=== PATIENT | female | born 1940 | race Caucasian/White ===

== ENCOUNTER 2018-01-14 18:15 | Inpatient (IN) | payer OTHER, MEDICARE ==
[2018-01-14] MEDS ORDERED: SOD CHLORIDE 0.9% 500 ML IV (20:30)
[2018-01-14 20:32] LABS: ADD MAN DIFF? NO
[2018-01-14 20:34] LABS: WHITE BLOOD COUNT 13.3 10^3/ul (4.8-10.8)
[2018-01-14 20:34] LABS: ABNORMAL IP MESSAGE 1; BASOPHIL # 0.1 10^3/ul (0.0-0.1); BASOPHILS % 0.4 % (0.0-2.0); EOSINOPHILS % 0.2 % (0.0-7.0); HEMATOCRIT 35.5 % (37.0-47.0); HEMOGLOBIN 11.1 g/dl (12.0-16.0); LYMPHOCYTES # 1.6 10^3/ul (0.8-2.9); LYMPHOCYTES % 12.1 % (15.0-51.0); MEAN CORPUSCULAR HEMOGLOBIN 18.7 pg (29.0-33.0); MEAN CORPUSCULAR HGB CONC 31.3 g/dl (32.0-37.0); MEAN CORPUSCULAR VOLUME 59.9 fl (82.0-101.0); MEAN PLATELET VOLUME 10.2 fl (7.4-10.4); MONOCYTE # 0.7 10^3/ul (0.3-0.9); MONOCYTES % 5.2 % (0.0-11.0); NEUTROPHIL # 10.8 10^3/ul (1.6-7.5); NEUTROPHILS % 81.3 % (39.0-77.0); PLATELET COUNT 458 10^3/UL (140-415); RED BLOOD COUNT 5.93 10^6/ul (4.20-5.40); RED CELL DISTRIBUTION WIDTH 18.3 % (11.5-14.5)
[2018-01-14 20:40] LABS: POSITIVE DIFF @See below
[2018-01-14] MEDS: SODIUM CHLORIDE 0.9% 1L BAG IV* (20:46)
[2018-01-14] MEDS: KETOROLAC 15 MG INJ IV (20:47)
[2018-01-14] MEDS: ONDANSETRON 4 MG INJ IV (20:47)
[2018-01-14] MEDS: ACETAMINOPHEN 325 MG TAB PO (20:47)
[2018-01-14 20:53] LABS: ALANINE AMINOTRANSFERASE 26 IU/L (13-69); ALBUMIN 4.9 g/dl (3.3-4.9); ALBUMIN/GLOBULIN RATIO 1.11; ALKALINE PHOSPHATASE 88 IU/L (42-121); ANION GAP 19 (8-16); ASPARTATE AMINO TRANSFERASE 27 IU/L (15-46); BILIRUBIN,INDIRECT 0.4 mg/dl (0-1.1); BILIRUBIN,TOTAL 0.4 mg/dl (0.2-1.3); BLOOD UREA NITROGEN 16 mg/dl (7-20); CALCIUM 9.7 mg/dl (8.4-10.2); CARBON DIOXIDE 28 mmol/L (21-31); CHLORIDE 94 mmol/L (97-110); CREATININE 0.68 mg/dl (0.44-1.00); GLUCOSE 208 mg/dl (70-220); INR 0.88; LIPASE 136 U/L (23-300); POTASSIUM 4.4 mmol/L (3.5-5.1); PT RATIO 0.9; SODIUM 137 mmol/L (135-144); TOTAL PROTEIN 9.3 g/dl (6.1-8.1)
[2018-01-14 20:54] LABS: PARTIAL THROMBOPLASTIN TIME 29.1 Sec (23.0-35.0)
[2018-01-14 21:04] LABS: TROPONIN-I < 0.012 ng/ml (0.000-0.120)
[2018-01-14 21:31] LABS: ADD UMIC YES; UR ASCORBIC ACID NEGATIVE (NEGATIVE); UR BILIRUBIN (Dip) NEGATIVE (NEGATIVE); UR BLOOD (Dip) NEGATIVE (NEGATIVE); UR CLARITY CLEAR (CLEAR); UR COLOR COLORLESS (YELLOW); UR GLUCOSE (Dip) 3+ mg/dL (NEGATIVE); UR KETONES (Dip) TRACE mg/dL (NEGATIVE); UR LEUKOCYTE ESTERASE (Dip) NEGATIVE Leu/ul (NEGATIVE); UR NITRITE (Dip) NEGATIVE (NEGATIVE); UR RBC 1 /HPF (0-5); UR SPECIFIC GRAVITY (Dip) 1.007 (1.003-1.030); UR TOTAL PROTEIN (Dip) 2+ mg/dl (NEGATIVE); UR UROBILINOGEN (Dip) NEGATIVE (NEGATIVE); UR WBC 3 /HPF (0-5)
[2018-01-14] MEDS: CEFEPIME 1GM/50 ML (PMX) 50 ML IVPB (22:49)
[2018-01-14 22:54] LABS: LACTIC ACID 3.1 mmol/L (0.5-2.0)
[2018-01-14] MEDS ORDERED: ACETAMINOPHEN 325 MG TAB PO (23:00)
[2018-01-14] MEDS ORDERED: DOCUSATE SODIUM 100 MG CAP PO (23:00)
[2018-01-14] MEDS ORDERED: ONDANSETRON 4 MG INJ IV (23:00)
[2018-01-14] MEDS ORDERED: NACL 0.9% 3 ML SYG IV (23:00)
[2018-01-14] MEDS ORDERED: BISACODYL (EC) 5 MG TAB PO (23:00)
[2018-01-14] MEDS: VANCOMYCIN 1 GM (PMX) 250 ML IVPB (23:25)
[2018-01-15] MEDS: SOD CHLORIDE 0.9% 100 ML (00:17)
[2018-01-15] MEDS: IOHEXOL 300MG/ML 150 ML BTL (00:17)
[2018-01-15 00:39] LABS: LACTIC ACID 2.5 mmol/L (0.5-2.0)
[2018-01-15 01:03] LABS: C-REACTIVE PROTEIN 0.6 mg/dl (0.0-0.9)
[2018-01-15] MEDS: ACCU-CHEK XX (02:00)
[2018-01-15] MEDS: LOSARTAN 50 MG TAB PO ×3 (02:22→21:07)
[2018-01-15] MEDS: INSULIN ASPART [NOVOLOG] 3 ML PEN SC ×7 (05:26→21:40)
[2018-01-15] MEDS: ONDANSETRON 4 MG TAB PO ×2 (05:27→12:26)
[2018-01-15 06:08] LABS: ADD MAN DIFF? NO
[2018-01-15 06:15] LABS: ABNORMAL IP MESSAGE 1; BASOPHILS % 0.2 % (0.0-2.0); HEMATOCRIT 30.1 % (37.0-47.0); HEMOGLOBIN 9.5 g/dl (12.0-16.0); LYMPHOCYTES # 1.7 10^3/ul (0.8-2.9); LYMPHOCYTES % 15.8 % (15.0-51.0); MEAN CORPUSCULAR HEMOGLOBIN 18.6 pg (29.0-33.0); MEAN CORPUSCULAR HGB CONC 31.6 g/dl (32.0-37.0); MEAN PLATELET VOLUME 10.4 fl (7.4-10.4); MONOCYTE # 0.9 10^3/ul (0.3-0.9); NEUTROPHIL # 8.2 10^3/ul (1.6-7.5); NEUTROPHILS % 75.4 % (39.0-77.0); PLATELET COUNT 404 10^3/UL (140-415); RED CELL DISTRIBUTION WIDTH 17.2 % (11.5-14.5)
[2018-01-15 06:15] LABS: WHITE BLOOD COUNT 10.8 10^3/ul (4.8-10.8)
[2018-01-15 06:22] LABS: POSITIVE DIFF @See below
[2018-01-15 06:43] LABS: IRON 106 ug/dl (35-150)
[2018-01-15 06:45] LABS: ALANINE AMINOTRANSFERASE 36 IU/L (13-69); ALBUMIN 3.4 g/dl (3.3-4.9); ALBUMIN/GLOBULIN RATIO 0.97; ALKALINE PHOSPHATASE 61 IU/L (42-121); ANION GAP 16 (8-16); ASPARTATE AMINO TRANSFERASE 19 IU/L (15-46); BILIRUBIN,INDIRECT 0.6 mg/dl (0-1.1); BILIRUBIN,TOTAL 0.6 mg/dl (0.2-1.3); BLOOD UREA NITROGEN 14 mg/dl (7-20); CALCIUM 8.5 mg/dl (8.4-10.2); CARBON DIOXIDE 29 mmol/L (21-31); CHLORIDE 96 mmol/L (97-110); CHOL/HDL RATIO 2.5 RATIO; CHOLESTEROL 142 mg/dl (100-200); CREATININE 0.69 mg/dl (0.44-1.00); GLUCOSE 211 mg/dl (70-220); HDL CHOLESTEROL 56 mg/dl (33-92); LDL CHOLESTEROL,CALCULATED 73 mg/dl; MAGNESIUM 1.2 mg/dl (1.7-2.5); POTASSIUM 3.9 mmol/L (3.5-5.1); SODIUM 137 mmol/L (135-144); TOTAL PROTEIN 6.9 g/dl (6.1-8.1); TRIGLYCERIDES 67 mg/dl (0-149)
[2018-01-15 06:52] LABS: % IRON SATURATION 37 % SAT (22-52); TOTAL IRON BINDING CAPACITY 290 ug/dl (241-421)
[2018-01-15] MEDS ORDERED: VANCOMYCIN IV PER PHARMACY XX (07:30)
[2018-01-15] MEDS: PIPER-TAZO 3.375 GM IV (PMX) 100 ML IVPB ×3 (07:56→18:45)
[2018-01-15] MEDS ORDERED: GLUCOSE GEL 15 GRAM TUBE BUCCAL (08:00)
[2018-01-15] MEDS ORDERED: DEXTROSE 50% 50 ML SYRINGE IV ×2 (08:00)
[2018-01-15] MEDS ORDERED: GLUCOSE GEL 15 GRAM TUBE PO ×2 (08:00)
[2018-01-15] MEDS ORDERED: GLUCAGON 1 MG INJ IM (08:00)
[2018-01-15] MEDS: LEVETIRACETAM 500 MG TAB PO (09:01)
[2018-01-15 12:01] LABS: HEMOGLOBIN A1C 7.7 % (0-5.9)
[2018-01-15 12:12] LABS: CREATINE KINASE 33 IU/L (23-200)
[2018-01-15 12:22] LABS: CK-MB 0.66 ng/ml (0.0-2.4)
[2018-01-15] MEDS: MAGNESIUM SULFATE 4 GM/100 ML 100 ML IVPB (13:46)
[2018-01-15] MEDS: INSULIN GLARGINE [LANTus] (100 UNITS/ML) SYG SC (14:04)
[2018-01-15 18:15] LABS: CREATINE KINASE 32 IU/L (23-200)
[2018-01-15 18:27] LABS: CK-MB 0.65 ng/ml (0.0-2.4); TROPONIN-I < 0.012 ng/ml (0.000-0.120)
[2018-01-15] MEDS: VANCOMYCIN 1 GM 250 ML IVPB (20:47)
[2018-01-15] MEDS: hydrALAzine 20 MG INJ IV (21:08)
[2018-01-15] MEDS: PEG/ELECTROLYTES 4L BTL PO (21:40)
[2018-01-16] MEDS: PIPER-TAZO 3.375 GM IV (PMX) 100 ML IVPB ×5 (00:33→23:38)
[2018-01-16] MEDS: ACETAMINOPHEN 325 MG TAB PO (00:55)
[2018-01-16 01:22] LABS: CREATINE KINASE 31 IU/L (23-200)
[2018-01-16 01:34] LABS: CK INDEX 2.4; CK-MB 0.74 ng/ml (0.0-2.4); TROPONIN-I < 0.012 ng/ml (0.000-0.120)
[2018-01-16] MEDS: ACCU-CHEK XX (01:47)
[2018-01-16] MEDS: LORAZEPAM 2 MG INJ IV (04:38)
[2018-01-16 06:40] LABS: ADD MAN DIFF? NO
[2018-01-16 06:44] LABS: BASOPHILS % 0.5 % (0.0-2.0); EOSINOPHILS # 0.1 10^3/ul (0.0-0.5); HEMATOCRIT 27.9 % (37.0-47.0); HEMOGLOBIN 8.8 g/dl (12.0-16.0); LYMPHOCYTES # 1.9 10^3/ul (0.8-2.9); LYMPHOCYTES % 23.3 % (15.0-51.0); MEAN CORPUSCULAR HEMOGLOBIN 18.7 pg (29.0-33.0); MEAN CORPUSCULAR HGB CONC 31.5 g/dl (32.0-37.0); MEAN CORPUSCULAR VOLUME 59.4 fl (82.0-101.0); MEAN PLATELET VOLUME 9.9 fl (7.4-10.4); MONOCYTE # 1.1 10^3/ul (0.3-0.9); MONOCYTES % 13.4 % (0.0-11.0); NEUTROPHIL # 5.1 10^3/ul (1.6-7.5); NEUTROPHILS % 61.4 % (39.0-77.0); PLATELET COUNT 344 10^3/UL (140-415); RED CELL DISTRIBUTION WIDTH 17.1 % (11.5-14.5)
[2018-01-16 06:44] LABS: WHITE BLOOD COUNT 8.3 10^3/ul (4.8-10.8)
[2018-01-16 07:39] LABS: ANION GAP 13 (8-16); BLOOD UREA NITROGEN 13 mg/dl (7-20); CALCIUM 8.2 mg/dl (8.4-10.2); CARBON DIOXIDE 29 mmol/L (21-31); CHLORIDE 102 mmol/L (97-110); CREATININE 0.85 mg/dl (0.44-1.00); GLUCOSE 130 mg/dl (70-220); MAGNESIUM 2.5 mg/dl (1.7-2.5); POTASSIUM 3.4 mmol/L (3.5-5.1); SODIUM 141 mmol/L (135-144)
[2018-01-16] MEDS: INSULIN ASPART [NOVOLOG] 3 ML PEN SC ×7 (07:55→21:00)
[2018-01-16] MEDS: INSULIN GLARGINE [LANTus] (100 UNITS/ML) SYG SC (09:02)
[2018-01-16] MEDS: LOSARTAN 50 MG TAB PO ×2 (11:20→20:51)
[2018-01-16] MEDS: LEVETIRACETAM 500 MG TAB PO (11:20)
[2018-01-16] MEDS: POTASSIUM CHLORIDE (SR) 20 MEQ TAB PO (11:23)
[2018-01-16 11:40] LABS: OCCULT BLOOD STOOL NEGATIVE (NEGATIVE)
[2018-01-16] MEDS: LACTULOSE 30ML CUP PO ×4 (16:26→23:38)
[2018-01-16] MEDS: PANTOPRAZOLE 40 MG INJ IV (18:14)
[2018-01-16] MEDS: VANCOMYCIN 1 GM 250 ML IVPB (20:50)
[2018-01-16] MEDS: hydrALAzine 20 MG INJ IV (23:39)
[2018-01-17] MEDS: ACCU-CHEK XX (02:00)
[2018-01-17] MEDS: PANTOPRAZOLE 40 MG INJ IV ×2 (05:19→18:00)
[2018-01-17] MEDS: PIPER-TAZO 3.375 GM IV (PMX) 100 ML IVPB (05:19)
[2018-01-17 06:15] LABS: ADD MAN DIFF? NO
[2018-01-17 06:30] LABS: ABNORMAL IP MESSAGE 1; BASOPHIL # 0.1 10^3/ul (0.0-0.1); BASOPHILS % 0.6 % (0.0-2.0); EOSINOPHILS # 0.2 10^3/ul (0.0-0.5); EOSINOPHILS % 2.6 % (0.0-7.0); HEMATOCRIT 30.9 % (37.0-47.0); HEMOGLOBIN 9.6 g/dl (12.0-16.0); LYMPHOCYTES # 2.7 10^3/ul (0.8-2.9); LYMPHOCYTES % 28.6 % (15.0-51.0); MEAN CORPUSCULAR HEMOGLOBIN 18.6 pg (29.0-33.0); MEAN CORPUSCULAR HGB CONC 31.1 g/dl (32.0-37.0); MEAN CORPUSCULAR VOLUME 59.8 fl (82.0-101.0); MEAN PLATELET VOLUME 10.1 fl (7.4-10.4); MONOCYTE # 1.2 10^3/ul (0.3-0.9); MONOCYTES % 12.3 % (0.0-11.0); NEUTROPHIL # 5.2 10^3/ul (1.6-7.5); NEUTROPHILS % 55.6 % (39.0-77.0); PLATELET COUNT 420 10^3/UL (140-415); RED BLOOD COUNT 5.17 10^6/ul (4.20-5.40); RED CELL DISTRIBUTION WIDTH 17.5 % (11.5-14.5)
[2018-01-17 06:30] LABS: WHITE BLOOD COUNT 9.4 10^3/ul (4.8-10.8)
[2018-01-17 06:31] LABS: POSITIVE DIFF @See below
[2018-01-17 07:13] LABS: ANION GAP 11 (8-16); BLOOD UREA NITROGEN 10 mg/dl (7-20); CALCIUM 9.1 mg/dl (8.4-10.2); CARBON DIOXIDE 27 mmol/L (21-31); CHLORIDE 108 mmol/L (97-110); CREATININE 0.79 mg/dl (0.44-1.00); GLUCOSE 131 mg/dl (70-220); POTASSIUM 3.9 mmol/L (3.5-5.1); SODIUM 142 mmol/L (135-144)
[2018-01-17] MEDS: INSULIN ASPART [NOVOLOG] 3 ML PEN SC ×7 (07:50→20:55)
[2018-01-17] MEDS: LEVETIRACETAM 500 MG TAB PO (08:26)
[2018-01-17] MEDS: LOSARTAN 50 MG TAB PO ×2 (08:26→20:53)
[2018-01-17] MEDS: INSULIN GLARGINE [LANTus] (100 UNITS/ML) SYG SC (08:34)
[2018-01-17] MEDS: LIDOCAINE 2% (SDV) 5 ML INJ (16:50)
[2018-01-17] MEDS: FENTAnyl 50 MCG/ML VIAL (16:50)
[2018-01-17] MEDS: ETOMIDATE 20 MG INJ (16:51)
[2018-01-17] MEDS: MIDAZOLAM 1 MG/ML 2 ML INJ (16:51)
[2018-01-17] MEDS: hydrALAzine 20 MG INJ IV ×2 (17:31→17:56)
[2018-01-18] MEDS: ACCU-CHEK XX (02:00)
[2018-01-18] MEDS: PANTOPRAZOLE 40 MG INJ IV (05:17)
[2018-01-18] MEDS: LOSARTAN 50 MG TAB PO (08:23)
[2018-01-18] MEDS: LEVETIRACETAM 500 MG TAB PO (08:23)
[2018-01-18] MEDS: INSULIN ASPART [NOVOLOG] 3 ML PEN SC ×4 (08:25→12:18)
[2018-01-18] MEDS: INSULIN GLARGINE [LANTus] (100 UNITS/ML) SYG SC (08:34)
[2018-01-18 10:46] LABS: PROCALCITONIN <0.10 ng/mL (<0.10)
== END 2018-01-18 16:50 | DRG 872 ==
LOC: TEL 01-16 00:02 → E/R 18:15 → TEL 23:01
PROC: 0DJ08ZZ Inspection of Upper Intestinal Tract, Via Natural or Artificial Opening Endoscopic (ICD-10-PCS; principal; 2018-01-17 16:00)
PROC: 0DJD8ZZ Inspection of Lower Intestinal Tract, Via Natural or Artificial Opening Endoscopic (ICD-10-PCS; 2018-01-17 16:00)
DX: A41.9 Sepsis, unspecified organism (principal); F32.1 Major depressive disorder, single episode, moderate; R65.20 Severe sepsis without septic shock; K52.9 Noninfective gastroenteritis and colitis, unspecified
CPT/HCPCS: 36415; 70450; 70551; 71045; 72148; 74177; 80048; 80053; 80061; 81001; 82270; 82550; 82553; 82728; 82962; 83036; 83540; 83605; 83690; 83735; 84145; 84443; 84484; 85025; 85610; 85730; 86140; 87040; 87045; 87086; 87177; 87400; 88305; 93005; 93306; 95819; 96361; 96374; 96375; 97161; 99291-25